=== PATIENT | female | born 1950 | race Caucasian/White ===

== ENCOUNTER → 2020-08-07 | Outpatient (CLI) | payer MEDICARE ==
--- NOTE | 2020-08-07 14:01 | CARD ---
MR#: [id number] Date of Study: 08/07/2020 Ordering Physician: JIMMIE DALTON, Referring Physician: JIMMIE DALTON Tech: Bianca Alberts [facility] APPROVED REPORT EXAM: Two-dimensional and M-mode echocardiogram with Doppler and color Doppler. Other Information Quality : AverageHR: 83bpm Rhythm : NSR INDICATION RISK FACTORS Hypertension Hyperlipidemia 2D DIMENSIONS RVDd3.8 (2.9-3.5cm)Left Atrium(2D)3.3 (1.6-4.0cm) IVSd1.1 (0.7-1.1cm)Aortic Root(2D)3.6 (2.0-3.7cm) LVDd3.3 (3.9-5.9cm)LVOT Diameter2.0 (1.8-2.4cm) PWd1.1 (0.7-1.1cm)LVDs2.3 (2.5-4.0cm) FS (%) 31.2 %SV26.6 ml LVEF(%)60.3 (>50%) Aortic Valve AoV Peak Davin.218.8cm/sAoV VTI45.2cm AO Peak GR.19.2mmHgLVOT Peak Davin.86.9cm/s AO Mean GR.9mmHgAVA (VMAX)1.27cm2 AI P 1/2 [id number] Mitral Valve MV E Vupjkexa32.3cm/sMV DECEL [id number] MV A Gfnrtjaj431.9cm/sE/A Ratio0.7 Pulmonary Valve PV Peak Ymhhdqrk19.4cm/s Tricuspid Valve TR P. Puroftej854vw/sTR Peak Gr.29mmHg Pulmonary Vein S1 Bghvyozn75.6cm/sD2 Gvyadmpd34.5cm/s PVa [id number] LEFT VENTRICLE The left ventricle is normal size. There is borderline to mild concentric left ventricular hypertroph y. The left ventricular systolic function is normal and the ejection fraction is within normal range. Estimated ejection fraction 55-60%. There is normal LV segmental wall motion. Tissue Doppler imaging reveals mild left ventricular diastolic dysfunction. RIGHT VENTRICLE The right ventricle is normal size. There is normal right ventricular wall thickness. The right ventr icular systolic function is normal. ATRIA The left atrium size is normal. The right atrium size is normal. The interatrial septum is intact wit h no evidence for an atrial septal defect or patent foramen ovale as noted on 2-D or Doppler imaging. AORTIC VALVE The aortic valve is calcified with moderately restricted leaflet motion. Doppler and Color Flow revea led mild aortic regurgitation. There is mild valvular aortic stenosis but likely underestimated on th is study. Consider MILA based on clinical correlation. MITRAL VALVE The mitral valve is thickened but opens well. There is no evidence of mitral valve prolapse. There is no mitral valve stenosis. Doppler and Color-flow revealed mild mitral regurgitation. TRICUSPID VALVE The tricuspid valve is normal in structure and function. Doppler and Color Flow revealed trace tricus pid regurgitation. Estimated PAP 32 mmHg. There is no tricuspid valve stenosis. PULMONIC VALVE Doppler and Color Flow revealed mild pulmonic valvular regurgitation. There is no pulmonic valvular s tenosis. GREAT VESSELS The aortic root is mildly enlarged. The IVC is normal in size and collapses >50% with inspiration. PERICARDIAL EFFUSION There is no evidence of significant pericardial effusion. Critical Notification Critical Value: No <Conclusion> The left ventricular systolic function is normal and the ejection fraction is within normal range. E stimated ejection fraction 55-60%. There is normal LV segmental wall motion. The aortic valve is calcified with moderately restricted leaflet motion. There is mild valvular aortic stenosis but likely underestimated on this study. Consider MILA base d on clinical correlation. Signed by : Arden Jiang, Electronically Approved : 08/07/2020 14:00:48
== END ==
LOC: ECHO 07:53
PROVIDERS: ATTEND Internal Medicine Cardiovascular Disease
DX: I08.8 Other rheumatic multiple valve diseases (principal); I11.9 Hypertensive heart disease without heart failure
CPT/HCPCS: 93306